=== PATIENT | male | born 1990 | race Caucasian/White ===

== ENCOUNTER 2017-01-22 00:11 | Emergency (ER) | payer SELFPAY ==
[~2017-01-22] VITALS: Ht 185.4 cm; Wt 71.3 kg
--- NOTE | 2017-01-22 00:25 | NUR ---
Pt presents to ER with c/o "a feeling of throat closing up" after drinking coffee about twenty minutes before arrival. Pt also states his heart was racing. Pt suggested that "maybe he's just anxious". Pt is accompanied by his mother. No other concerns presented. Pt has calm, cooperative affect. Pupils dilated.
[2017-01-22] MEDS ORDERED: HYDROXYZINE 25 MG/ML IM ONE (00:35)
[2017-01-22] MEDS ORDERED: [UNRECOGNIZED DRUG - OTHER] PO ONE (00:45)
[2017-01-22] MEDS ORDERED: diphenhydrAMINE 50 MG (BENADRYL) CAPSULE PO ONE (00:45)
[2017-01-22] MEDS ORDERED: hydrOXYzine 25 MG (ATARAX) TABLET PO ONE (00:45)
[2017-01-22 01:06] VITALS: BP 131/77
== END 2017-01-22 01:05 | disposition home or self-care (01) ==
LOC: ED 00:13
DX: F45.8 Other somatoform disorders (principal)
CPT/HCPCS: 99282; 99283